=== PATIENT | female | born 1990 | race Caucasian/White ===

== ENCOUNTER 2017-07-25 17:14 | Emergency (ER) | payer SELFPAY ==
[~2017-07-25] VITALS: Ht 162.6 cm; Wt 49.0 kg
[2017-07-25 17:36] VITALS: BP 101/64
== END 2017-07-25 19:47 | disposition home or self-care (01) ==
LOC: ER 17:19
DX: S40.011A Contusion of right shoulder, initial encounter (principal); F17.210 Nicotine dependence, cigarettes, uncomplicated; W19.XXXA Unspecified fall, initial encounter; Y93.89 Activity, other specified; Y99.8 Other external cause status; Y92.89 Other specified places as the place of occurrence of the external cause
CPT/HCPCS: 73030

== ENCOUNTER 2017-08-19 17:33 | Emergency (ER) | payer SELFPAY ==
[~2017-08-19] VITALS: Ht 162.6 cm; Wt 49.9 kg
[2017-08-19 17:54] VITALS: BP 116/74
== END 2017-08-19 21:22 | disposition left against medical advice (07) ==
LOC: ER 17:37
DX: H92.01 Otalgia, right ear (principal); Z53.21 Procedure and treatment not carried out due to patient leaving prior to being seen by health care provider

== ENCOUNTER 2017-08-22 23:32 | Emergency (ER) | payer MEDICAID ==
[~2017-08-22] VITALS: Ht 162.6 cm; Wt 49.9 kg
[2017-08-23 00:15] VITALS: BP 98/57
== END 2017-08-23 01:29 | disposition left against medical advice (07) ==
LOC: ER 23:38
DX: H92.01 Otalgia, right ear (principal); Z53.21 Procedure and treatment not carried out due to patient leaving prior to being seen by health care provider

== ENCOUNTER 2018-01-25 16:23 | Emergency (ER) | payer MEDICAID ==
[~2018-01-25] VITALS: Ht 162.6 cm; Wt 49.9 kg
[2018-01-25 17:07] VITALS: BP 116/72
[2018-01-25] MEDS ORDERED: IBUPROFEN 800 MG TAB PO ONE (18:30)
== END 2018-01-25 18:23 | disposition home or self-care (01) ==
LOC: ER 16:30
DX: S00.03XA Contusion of scalp, initial encounter (principal); S09.90XA Unspecified injury of head, initial encounter; F17.210 Nicotine dependence, cigarettes, uncomplicated; W22.8XXA Striking against or struck by other objects, initial encounter; Y93.89 Activity, other specified; Y99.8 Other external cause status; Y92.89 Other specified places as the place of occurrence of the external cause
CPT/HCPCS: 70450; 81025

== ENCOUNTER 2018-04-28 09:10 | Emergency (ER) | payer MEDICAID ==
[~2018-04-28] VITALS: Ht 162.6 cm; Wt 51.3 kg
[2018-04-28 09:39] VITALS: BP 127/75
[2018-04-28] MEDS ORDERED: IBUPROFEN 800 MG TAB PO ONE (10:00)
[2018-04-28] MEDS ORDERED: cefTRIAXone SOD 1,000 MG VL IM ONE (10:00)
== END 2018-04-28 10:21 | disposition home or self-care (01) ==
LOC: ER 09:10
DX: K02.9 Dental caries, unspecified (principal); F17.210 Nicotine dependence, cigarettes, uncomplicated
CPT/HCPCS: 96372; 99283; J0696

== ENCOUNTER 2018-10-08 16:36 | Emergency (ER) | payer MEDICAID ==
[~2018-10-08] VITALS: Ht 162.6 cm; Wt 48.1 kg
[2018-10-08 16:56] VITALS: BP 117/76
== END 2018-10-08 17:31 | disposition left against medical advice (07) ==
LOC: ER 16:36
DX: R51 Headache (principal); F17.210 Nicotine dependence, cigarettes, uncomplicated
CPT/HCPCS: 70450

== ENCOUNTER 2018-12-28 23:08 | Emergency (ER) | payer MEDICAID ==
[~2018-12-28] VITALS: Ht 154.9 cm; Wt 49.9 kg
[2018-12-28] MEDS ORDERED: ONDANSETRON HCL 4 MG/2 ML VIAL ONE (23:34)
[2018-12-28] MEDS ORDERED: HYDROmorphone HCL 2 MG/ML VL ONE (23:34)
[2018-12-29] MEDS ORDERED: HYDROmorphone HCL 2 MG/ML VL IV ONE
[2018-12-29] MEDS ORDERED: SODIUM CHLORIDE 0.9% 1,000 ML IV ONE
[2018-12-29] MEDS ORDERED: ONDANSETRON HCL 4 MG/2 ML VIAL IV ONE
[2018-12-29 00:50] LABS: Basophils # (auto) 0 uL; Basophils % (auto) 0.5 % (0.0-2.0); Eosinophils # (auto) 0 uL; Eosinophils % (auto) 0.3 % (0.0-7.0); Hematocrit 42.9 % (36.0-46.0); Hemoglobin 14.3 g/dL (12.2-16.2); Lymphocytes # (auto) 1.6 uL; Lymphocytes % (auto) 19.1 % (10.0-50.0); Mean Corpuscular Hemoglobin 30.5 pg (28.0-32.0); Mean Corpuscular Hgb Conc. 33.3 g/dL (32.0-36.0); Mean Corpuscular Volume 91.5 fL (80.0-100.0); Monocytes # (auto) 0.5 uL; Monocytes % (auto) 5.7 % (0.0-12.0); Neutrophils # (auto) 6.3 uL; Neutrophils % (auto) 74.4 % (37.0-80.0); Nucleated Red Blood Cells % 0.1 %; Platelet Count (auto) 267 10^3/uL (140-450); Red Blood Cells 4.69 10^6/uL (4.0-5.20); Red Cell Distribution Width 12.1 % (11.8-14.3); White Blood Cell 8.4 10^3/uL (4.4-10.8)
[2018-12-29 01:11] LABS: Albumin 3.7 g/dL (3.4-5.0); BUN/Creatinine Ratio 16.7; Calcium 8.5 mg/dL (8.5-10.1); Potassium 4.1 mmol/L (3.5-5.1)
[2018-12-29 01:13] LABS: Bilirubin, Total 0.2 mg/dL (0.2-1.0); INR 1.03 (0.9-1.15); Total Protein 7.7 g/dL (6.4-8.2)
[2018-12-29 01:53] LABS: Amphetamine Screen, Urine POSITIVE (NEGATIVE); Barbiturate Scree,Urine NEGATIVE (NEGATIVE); Benzodiazephine Screen, Urine NEGATIVE (NEGATIVE); Cannabinoid Screen, Urine NEGATIVE (NEGATIVE); Cocaine Screen, Urine NEGATIVE (NEGATIVE); Phencyclidine Screen, Urine NEGATIVE (NEGATIVE)
[2018-12-29 02:00] VITALS: BP 107/67
[2018-12-29 02:01] LABS: Opiate Scree,Urine NEGATIVE (NEGATIVE)
== END 2018-12-29 03:20 | disposition home or self-care (01) ==
LOC: ER 23:08
DX: S83.92XA Sprain of unspecified site of left knee, initial encounter (principal); S96.912A Strain of unspecified muscle and tendon at ankle and foot level, left foot, initial encounter; S50.02XA Contusion of left elbow, initial encounter; S70.12XA Contusion of left thigh, initial encounter; S80.12XA Contusion of left lower leg, initial encounter; S80.812A Abrasion, left lower leg, initial encounter; R51 Headache; F17.210 Nicotine dependence, cigarettes, uncomplicated; V03.90XA Pedestrian on foot injured in collision with car, pick-up truck or van, unspecified whether traffic or nontraffic accident, initial encounter; Y93.01 Activity, walking, marching and hiking; Y92.488 Other paved roadways as the place of occurrence of the external cause; Y99.8 Other external cause status
CPT/HCPCS: 36415; 70450; 73080; 73562; 73590; 73630; 80053; 80307; 80320; 84702; 85025; 85610; 85730; 86850; 86900; 86901; 93005; 96374; 96375; 99284; J1170; J2405; J7030

== ENCOUNTER 2019-01-05 19:41 | Emergency (ER) | payer MEDICAID ==
[~2019-01-05] VITALS: Ht 162.6 cm; Wt 49.0 kg
[2019-01-05 20:29] VITALS: BP 103/71
== END 2019-01-05 22:00 | disposition left against medical advice (07) ==
LOC: ER 19:44
DX: M25.572 Pain in left ankle and joints of left foot (principal); Z53.21 Procedure and treatment not carried out due to patient leaving prior to being seen by health care provider

== ENCOUNTER 2019-01-14 18:17 | Emergency (ER) | payer MEDICAID ==
[~2019-01-14] VITALS: Ht 162.6 cm; Wt 49.0 kg
[2019-01-14] MEDS ORDERED: SODIUM CHLORIDE 0.9% 1,000 ML IV ONE (18:55)
[2019-01-14] MEDS ORDERED: LORazepam 2MG/ML-1ML VIAL IV ONE (19:00)
[2019-01-14 20:06] VITALS: BP 108/57
== END 2019-01-14 20:47 | disposition home or self-care (01) ==
LOC: EDBD 18:17 → ER 18:18
DX: F41.9 Anxiety disorder, unspecified (principal); F17.210 Nicotine dependence, cigarettes, uncomplicated; F12.90 Cannabis use, unspecified, uncomplicated
CPT/HCPCS: 36415; 80320; 94761; 96374; 99284; J2060; J7030

== ENCOUNTER 2019-04-17 14:48 | Emergency (ER) | payer MEDICAID ==
[~2019-04-17] VITALS: Ht 162.6 cm; Wt 52.2 kg
[2019-04-17] MEDS ORDERED: SODIUM CHLORIDE 0.9% 1,000 ML IV ONE (15:19)
[2019-04-17 15:23] LABS: Basophils # (auto) 0 uL; Basophils % (auto) 0.3 % (0.0-2.0); Eosinophils # (auto) 0 uL; Hematocrit 41.1 % (36.0-46.0); Hemoglobin 14.2 g/dL (12.2-16.2); Lymphocytes # (auto) 1.5 uL; Lymphocytes % (auto) 10.5 % (10.0-50.0); Mean Corpuscular Hemoglobin 30.4 pg (28.0-32.0); Mean Corpuscular Hgb Conc. 34.5 g/dL (32.0-36.0); Mean Corpuscular Volume 88.1 fL (80.0-100.0); Monocytes # (auto) 0.8 uL; Monocytes % (auto) 5.8 % (0.0-12.0); Neutrophils # (auto) 11.9 uL; Neutrophils % (auto) 83.4 % (37.0-80.0); Platelet Count (auto) 285 10^3/uL (140-450); Red Blood Cells 4.67 10^6/uL (4.0-5.20); Red Cell Distribution Width 12.3 % (11.8-14.3); White Blood Cell 14.3 10^3/uL (4.4-10.8)
[2019-04-17 15:37] LABS: Albumin 3.3 g/dL (3.4-5.0); Anion Gap 8 (5-15); Blood Urea Nitrogen 10 mg/dL (7-18); Calcium 8.8 mg/dL (8.5-10.1); Carbon Dioxide 24 mmol/L (21-32); Chloride 102 mmol/L (98-107); Glucose 95 mg/dL (74-106); Potassium 4.1 mmol/L (3.5-5.1); Sodium 134 mmol/L (136-145)
[2019-04-17 15:39] LABS: Alanine Aminotransferase 23 U/L (13-56); Aspartate Aminotransferase 17 U/L (15-37); GFR African American 114 mL/min; GFR Non-African American 94 mL/min
[2019-04-17 15:43] LABS: Alkaline Phosphatase 96 U/L (45-117); Bilirubin, Total 0.5 mg/dL (0.2-1.0); Total Protein 8.4 g/dL (6.4-8.2)
[2019-04-17 15:59] LABS: Beta HCG, Quantitative < 1 mlU/mL (1-3); Thyroid Stimulating Hormone 0.36 uIU/mL (0.358-3.74)
[2019-04-17] MEDS ORDERED: IBUPROFEN 600 MG TAB PO ONE (16:00)
[2019-04-17] MEDS ORDERED: ACETAMINOPHEN 500 MG TAB PO ONE (16:00)
[2019-04-17] MEDS ORDERED: KETOROLAC TROMETH 30 MG/ML 1ML VIAL IV ONE (16:15)
[2019-04-17] MEDS ORDERED: PROMETHAZINE HCL 25 MG/ML 1ML IV ONE (16:15)
[2019-04-17 20:58] VITALS: BP 106/80
[2019-04-17 21:18] LABS: Urine Bacteria NONE SEEN /hpf (None Seen); Urine Blood Negative /uL (Negative); Urine Specific Gravity 1.003 (1.001-1.035); Urine WBC 2 /hpf (0 - 5)
[2019-04-17 21:31] LABS: Alcohol, Urine < 3.0 mg/dL (0-5); Amphetamine Screen, Urine POSITIVE (NEGATIVE); Barbiturate Scree,Urine NEGATIVE (NEGATIVE); Benzodiazephine Screen, Urine NEGATIVE (NEGATIVE); Cannabinoid Screen, Urine NEGATIVE (NEGATIVE); Cocaine Screen, Urine NEGATIVE (NEGATIVE); Phencyclidine Screen, Urine NEGATIVE (NEGATIVE)
[2019-04-17 21:37] LABS: Opiate Scree,Urine NEGATIVE (NEGATIVE)
[2019-04-18] MEDS ORDERED: ACETAMINOPHEN 500 MG TAB PO ONE (00:30)
== END 2019-04-18 00:29 | disposition home or self-care (01) ==
LOC: ER 14:54
DX: F11.23 Opioid dependence with withdrawal (principal); M35.3 Polymyalgia rheumatica; E44.1 Mild protein-calorie malnutrition; F17.210 Nicotine dependence, cigarettes, uncomplicated; F12.10 Cannabis abuse, uncomplicated; Z68.1 Body mass index [BMI] 19.9 or less, adult
CPT/HCPCS: 36415; 71046; 80053; 80307; 81001; 83735; 84443; 84484; 84702; 85025; 93005; 96374; 96375; 99284; J1885; J2550; J7030

== ENCOUNTER 2019-04-21 01:28 | Emergency (ER) | payer MEDICAID ==
[~2019-04-21] VITALS: Ht 162.6 cm; Wt 51.7 kg
[2019-04-21] MEDS ORDERED: ACETAMINOPHEN 325 MG TAB PO ONE ×2 (01:36→02:00)
[2019-04-21] MEDS ORDERED: LORazepam 2MG/ML-1ML VIAL IV ONE (02:45)
[2019-04-21 04:06] LABS: Basophils # (auto) 0.1 uL; Basophils % (auto) 0.4 % (0.0-2.0); Eosinophils # (auto) 0 uL; Eosinophils % (auto) 0.2 % (0.0-7.0); Hematocrit 33.6 % (36.0-46.0); Hemoglobin 11.4 g/dL (12.2-16.2); Lymphocytes # (auto) 1.7 uL; Lymphocytes % (auto) 9.3 % (10.0-50.0); Mean Corpuscular Hemoglobin 29.9 pg (28.0-32.0); Mean Corpuscular Hgb Conc. 33.9 g/dL (32.0-36.0); Mean Corpuscular Volume 88.2 fL (80.0-100.0); Monocytes # (auto) 1.3 uL; Neutrophils # (auto) 15.4 uL; Neutrophils % (auto) 83.1 % (37.0-80.0); Platelet Count (auto) 317 10^3/uL (140-450); Red Blood Cells 3.81 10^6/uL (4.0-5.20); Red Cell Distribution Width 12.4 % (11.8-14.3); White Blood Cell 18.5 10^3/uL (4.4-10.8)
[2019-04-21 04:24] LABS: Albumin 2.2 g/dL (3.4-5.0); BUN/Creatinine Ratio 16.7; Calcium 7.8 mg/dL (8.5-10.1); Potassium 3.2 mmol/L (3.5-5.1)
[2019-04-21 04:27] LABS: Bilirubin, Total 0.3 mg/dL (0.2-1.0); Total Protein 6.7 g/dL (6.4-8.2)
[2019-04-21] MEDS ORDERED: SODIUM CHLORIDE 0.9% 1,000 ML IVB ONE (07:36)
[2019-04-21] MEDS ORDERED: PROMETHAZINE HCL 25 MG/ML 1ML IV PRN (07:45)
[2019-04-21 08:00] VITALS: BP 108/51
[2019-04-21 08:30] LABS: Alcohol, Urine < 3.0 mg/dL (0-5); Amphetamine Screen, Urine POSITIVE (NEGATIVE); Barbiturate Scree,Urine NEGATIVE (NEGATIVE); Benzodiazephine Screen, Urine POSITIVE (NEGATIVE); Cannabinoid Screen, Urine NEGATIVE (NEGATIVE); Cocaine Screen, Urine NEGATIVE (NEGATIVE)
[2019-04-21 08:31] LABS: Urine Bacteria NONE SEEN /hpf (None Seen); Urine Blood Negative /uL (Negative); Urine Mucus FEW (None Seen); Urine Specific Gravity 1.009 (1.001-1.035); Urine WBC 1 /hpf (0 - 5)
[2019-04-21 08:37] LABS: Opiate Scree,Urine NEGATIVE (NEGATIVE); Phencyclidine Screen, Urine NEGATIVE (NEGATIVE)
[2019-04-21 11:42] LABS: Beta HCG, Quantitative < 1 mlU/mL (1-3)
[2019-04-21] MEDS ORDERED: FOLIC ACID 1 MG, MULTIPLE VITAMIN 10 ML, MAGNESIUM SULF SDV 50% 8 MEQ, THIAMINE INJ 100... INJ SCH ×5 (12:00)
[2019-04-21 12:07] LABS: Magnesium 1.7 mg/dL (1.6-2.6)
== END 2019-04-21 08:22 | disposition left against medical advice (07) ==
LOC: EDBD 01:28 → ER 01:30
DX: F11.23 Opioid dependence with withdrawal (principal); F15.10 Other stimulant abuse, uncomplicated; E87.6 Hypokalemia; E43 Unspecified severe protein-calorie malnutrition; F17.210 Nicotine dependence, cigarettes, uncomplicated; F12.10 Cannabis abuse, uncomplicated; Z68.1 Body mass index [BMI] 19.9 or less, adult
CPT/HCPCS: 36415; 80053; 80307; 81001; 83690; 83735; 84443; 84702; 85025; 96374; 99283; J2060; J7030

== ENCOUNTER 2019-05-08 17:57 | Emergency (ER) | payer MEDICAID ==
[~2019-05-08] VITALS: Ht 162.6 cm; Wt 49.0 kg
[2019-05-08 19:51] LABS: Basophils # (auto) 0.1 uL; Eosinophils # (auto) 0.1 uL; Mean Corpuscular Volume 89.4 fL (80.0-100.0); Monocytes # (auto) 0.4 uL; Nucleated Red Blood Cells % 0.1 %
[2019-05-08 19:53] LABS: Hematocrit 38.1 % (36.0-46.0); Hemoglobin 12.8 g/dL (12.2-16.2); Lymphocytes # (auto) 2.5 uL; Lymphocytes % (auto) 42.5 % (10.0-50.0); Mean Corpuscular Hemoglobin 30.1 pg (28.0-32.0); Mean Corpuscular Hgb Conc. 33.7 g/dL (32.0-36.0); Neutrophils # (auto) 2.8 uL; Neutrophils % (auto) 47.5 % (37.0-80.0); Platelet Count (auto) 590 10^3/uL (140-450); Red Blood Cells 4.26 10^6/uL (4.0-5.20); Red Cell Distribution Width 13.8 % (11.8-14.3); White Blood Cell 5.8 10^3/uL (4.4-10.8)
[2019-05-08 20:00] LABS: Albumin 3.3 g/dL (3.4-5.0)
[2019-05-08 20:03] LABS: BUN/Creatinine Ratio 20.5; Bilirubin, Total 0.2 mg/dL (0.2-1.0); Total Protein 8.3 g/dL (6.4-8.2)
[2019-05-08 23:00] VITALS: BP 93/45
[2019-05-08 23:56] LABS: Urine Amorphous Crystal MOD /hpf (None Seen); Urine Bacteria NONE SEEN /hpf (None Seen); Urine Blood Negative /uL (Negative); Urine Mucus MODERATE (None Seen); Urine Specific Gravity 1.021 (1.001-1.035); Urine WBC 12 /hpf (0 - 5)
== END 2019-05-08 23:47 | disposition left against medical advice (07) ==
LOC: ER 17:57
DX: R10.9 Unspecified abdominal pain (principal); Z53.21 Procedure and treatment not carried out due to patient leaving prior to being seen by health care provider
CPT/HCPCS: 36415; 80053; 81001; 82150; 83690; 85025

== ENCOUNTER 2020-09-04 20:22 | Observation (INO) | payer MEDICAID ==
[2020-09-04 23:11] LABS: Amphetamine Screen, Urine POSITIVE (NEGATIVE); Barbiturate Scree,Urine NEGATIVE (NEGATIVE); Benzodiazephine Screen, Urine NEGATIVE (NEGATIVE); Cannabinoid Screen, Urine NEGATIVE (NEGATIVE); Cocaine Screen, Urine NEGATIVE (NEGATIVE); Opiate Scree,Urine POSITIVE (NEGATIVE); Phencyclidine Screen, Urine NEGATIVE (NEGATIVE)
[2020-09-04] MEDS ORDERED: PREN1TAB71 OR (23:30)
== END 2020-09-05 01:13 | disposition home or self-care (01) ==
LOC: LDRP 20:22
PROVIDERS: ADMIT Specialist; ATTEND Specialist
DX: O40.2XX0 Polyhydramnios, second trimester, not applicable or unspecified (principal); O09.32 Supervision of pregnancy with insufficient antenatal care, second trimester; O26.892 Other specified pregnancy related conditions, second trimester; R10.9 Unspecified abdominal pain; Z3A.26 26 weeks gestation of pregnancy
CPT/HCPCS: 59025; 76805; 80307; 81002; G0378

== ENCOUNTER 2020-10-13 10:30 | Observation (INO) | payer OTHER ==
[~2020-10-13 10:30] MED LIST: PREN1TAB71 OR
== END 2020-10-13 11:00 | disposition left against medical advice (07) ==
LOC: LDRP 10:30
PROVIDERS: ADMIT Obstetrics & Gynecology; ATTEND Obstetrics & Gynecology
DX: O26.893 Other specified pregnancy related conditions, third trimester (principal); N89.8 Other specified noninflammatory disorders of vagina; Z3A.31 31 weeks gestation of pregnancy; V48.0XXA Car driver injured in noncollision transport accident in nontraffic accident, initial encounter; Y93.89 Activity, other specified; Y92.096 Garden or yard of other non-institutional residence as the place of occurrence of the external cause; Y99.8 Other external cause status
CPT/HCPCS: 59025; G0378